=== PATIENT | female | born 1990 | race Caucasian/White ===

== ENCOUNTER 2022-05-21 12:20 | Outpatient (CLI) | payer OTHER ==
[2022-05-21 12:31] LABS: BASOPHILS % (AUTO) 0.4 %; EOSINOPHILS # (AUTO) 0.1 10^3/uL (0.0-0.7); HCT - HEMATOCRIT 35.5 % (37.0-47.0); HGB - HEMOGLOBIN 11.5 g/dL (12.0-16.0); LYMPHOCYTES # (AUTO) 2.2 10^3/uL (1.5-3.5); LYMPHOCYTES % (AUTO) 20.3 %; MEAN CORPUSCULAR HEMOGLOBIN 28.4 pg (27.0-31.0); MEAN CORPUSCULAR HGB CONC 32.4 g/dL (32.0-36.0); MEAN CORPUSCULAR VOLUME 87.7 fL (81.0-99.0); MEAN PLATELET VOLUME 10.3 fL (7.9-10.8); MONOCYTES # (AUTO) 0.9 10^3/uL (0.0-1.0); MONOCYTES % (AUTO) 8.2 %; NEUTROPHILS # (AUTO) 7.5 10^3/uL (1.5-6.6); NEUTROPHILS % (AUTO) 69.2 %; PLT - PLATELET COUNT 273 10^3/uL (130-450); RED BLOOD COUNT 4.05 10^6/uL (4.20-5.40); RED CELL DISTRIBUTION WIDTH 13.1 % (12.0-15.0); WHITE BLOOD COUNT 10.8 x10^3/uL (4.8-10.8)
[2022-05-21 12:44] LABS: ALBUMIN 2.8 g/dL (3.2-5.5); ALBUMIN/GLOBULIN RATIO 0.7 (1.0-2.2); ALKALINE PHOSPHATASE 137 IU/L (42-121); ALT ALANINE AMINOTRANSFERASE 12 IU/L (10-60); AST ASPARTATE AMINOTRANSFERASE 20 IU/L (10-42); BILIRUBIN,TOTAL < 0.2 mg/dL (0.2-1.0); BUN - BLOOD UREA NITROGEN 6 mg/dL (6-20); CALCIUM 9.7 mg/dL (8.5-10.3); CARBON DIOXIDE - CO2 20 mmol/L (21-32); CHLORIDE 106 mmol/L (101-111); CREATININE 0.5 mg/dL (0.4-1.0); GFR - MDRD 142 (>89); GLUCOSE 109 mg/dL (70-100); POTASSIUM 3.7 mmol/L (3.5-5.0); SODIUM 137 mmol/L (135-145); TOTAL PROTEIN 6.6 g/dL (6.7-8.2)
[2022-05-21 12:52] LABS: CREATININE,URINE 97.1 mg/dL; PROTEIN/CREATININE RATIO,URINE 0.2 (<=0.2)
== END 2022-05-21 12:21 | disposition home or self-care (01) ==
LOC: LAB 12:20
PROVIDERS: ATTEND Nurse Practitioner Obstetrics & Gynecology
DX: O13.3 Gestational [pregnancy-induced] hypertension without significant proteinuria, third trimester (principal)
CPT/HCPCS: 36415; 80053; 82570; 84156; 85025

== ENCOUNTER 2022-05-27 21:21 | Outpatient (CLI) | payer OTHER ==
[2022-05-27 21:44] VITALS: BP 148/93
[2022-05-27 22:21] LABS: BASOPHILS # (AUTO) 0.1 10^3/uL (0.0-0.1); BASOPHILS % (AUTO) 0.5 %; EOSINOPHILS # (AUTO) 0.1 10^3/uL (0.0-0.7); EOSINOPHILS % (AUTO) 1.1 %; HCT - HEMATOCRIT 33.4 % (37.0-47.0); HGB - HEMOGLOBIN 10.8 g/dL (12.0-16.0); LYMPHOCYTES # (AUTO) 2.7 10^3/uL (1.5-3.5); MEAN CORPUSCULAR HEMOGLOBIN 28.5 pg (27.0-31.0); MEAN CORPUSCULAR HGB CONC 32.3 g/dL (32.0-36.0); MEAN CORPUSCULAR VOLUME 88.1 fL (81.0-99.0); MEAN PLATELET VOLUME 10.9 fL (7.9-10.8); MONOCYTES # (AUTO) 1.1 10^3/uL (0.0-1.0); MONOCYTES % (AUTO) 10.6 %; NEUTROPHILS # (AUTO) 6.7 10^3/uL (1.5-6.6); NEUTROPHILS % (AUTO) 61.7 %; PLT - PLATELET COUNT 276 10^3/uL (130-450); RED BLOOD COUNT 3.79 10^6/uL (4.20-5.40); RED CELL DISTRIBUTION WIDTH 13.1 % (12.0-15.0); WHITE BLOOD COUNT 10.8 x10^3/uL (4.8-10.8)
[2022-05-27 22:37] LABS: ALBUMIN 2.8 g/dL (3.2-5.5); BILIRUBIN,TOTAL 0.3 mg/dL (0.2-1.0); CALCIUM 8.9 mg/dL (8.5-10.3); CREATININE 0.5 mg/dL (0.4-1.0); POTASSIUM 3.5 mmol/L (3.5-5.0)
[2022-05-27 22:38] LABS: PROTEIN/CREATININE RATIO,URINE 0.4 (<=0.2)
--- NOTE | 2022-05-27 22:39 | PROVIDER PROGRESS NOTE ---
- HPI Chief Complaint: Hypertension/PIH Current : Current EDU 06/21/22 Gestation 36 Weeks and 3 Days 2 Para 0 Vital Signs Temperature 36.9 C 05/27/22 21:42 Heart Rate 84 05/27/22 21:42 Respiratory Rate 18 05/27/22 21:42 Blood Pressure 148/93 H 05/27/22 21:42 Temperature 36.9 C 05/27/22 21:42 Heart Rate 84 05/27/22 21:42 Respiratory Rate 18 05/27/22 21:42 Blood Pressure 148/93 H 05/27/22 21:42 O2 Saturation If not protocol: Oxygen Flow, liters/minute - Procedures OB Procedure Performed: NST Diagnosis/Indication for NST: Gestational Hypertension NST Procedure: NST Procedure Start Date 05/27/22 Start Time 21:35 Stop Time 22:10 Vibroacoustic Stimulation Used No Patient States Movement Yes - Plan Plan: Etta presents today as directed by myself after she phones with concerns for elevated blood pressure with home BP cuff 159/111. She denies SAHU, visual disturbances, RUQ or epigastric pain. She denies vaginal bleeding, leakage of fluid or contractions. She reports +FM. NST performed 05/27/2022 NST read 05/27/2022 NST reactive. FHR baseline 140, moderate variability, + accels, no decels No contractions appreciated via tocometry BP 148/93, 141/94, 139/86, 149/94, 136/84 CBC WNL CMP-WNL Mtp/creatinine ratio - elevated to 0.4 (previously 0.2) Assessment: 32yo @ 36.3wks gestation Gestational hypertension (r/o preeclampsia) FHR Category I Plan: Pt given 100mg PO labetalol now and Rx sent to [facility] in [place] to continue tid. 24 hour urine protein ordered and instructions reviewed. IOL already scheduled for 37wks on 05/31/2022 @ 0730 with preinduction cervical ripening with misoprostol. NST with TALIA on Thursday - keep as scheduled. Continue 4 x daily BP monitoring at home - pt aware of parameters to call. Reviewed plan of care with regional office coordinator physician who is in agreement. Pt has emergency contact information. Pt released home with precautions. She verbalized understanding and agrees to above plan. She denies further questions or concerns at this time. FINAL DIAGNOSIS: Gestational hypertension
[2022-05-27 22:50] LABS: ALBUMIN/GLOBULIN RATIO 0.8 (1.0-2.2); TOTAL PROTEIN 6.5 g/dL (6.7-8.2)
[2022-05-27] MEDS ORDERED: LABETALOL 100 MG TABLET PO SCH (23:00)
== END 2022-05-27 23:04 | disposition home or self-care (01) ==
LOC: WFO 21:21 → FBP 21:25 → WFO 23:04
PROVIDERS: ATTEND Nurse Practitioner Obstetrics & Gynecology
DX: O13.3 Gestational [pregnancy-induced] hypertension without significant proteinuria, third trimester (principal); Z3A.36 36 weeks gestation of pregnancy
CPT/HCPCS: 36415; 59025; 80053; 82570; 84156; 85025; 99215; A9270

== ENCOUNTER 2022-05-29 12:26 | Outpatient (CLI) | payer OTHER ==
[2022-05-29 13:21] LABS: TOTAL PROTEIN,URINE TIMED 10 mg/dL
[2022-05-29 13:31] LABS: TOTAL PROTEIN 24HR,URINE 225 mg/24hr (40-150); TOTAL VOLUME 24HRS,URINE 2250 mL
== END 2022-05-29 12:27 | disposition home or self-care (01) ==
LOC: LAB.R 12:26
PROVIDERS: ATTEND Nurse Practitioner Obstetrics & Gynecology
DX: O13.3 Gestational [pregnancy-induced] hypertension without significant proteinuria, third trimester (principal); Z3A.36 36 weeks gestation of pregnancy
CPT/HCPCS: 84156

== ENCOUNTER 2022-05-31 07:43 | Inpatient (IN) | payer OTHER ==
[2022-05-31] MEDS ORDERED: CARBOPROST TROMETHAMINE 250 MCG/ML AMP IM PRN (09:04)
[2022-05-31] MEDS ORDERED: TRANEXAMIC ACID IN NACL 1,000 MG/100 ML BAG IV PRN (09:04)
[2022-05-31] MEDS ORDERED: lidocaine 1% 20 ML MDV ID PRN (09:04)
[2022-05-31] MEDS ORDERED: OXYTOCIN/SODIUM CHLORIDE 500 ML IV PRN (09:04)
[2022-05-31] MEDS ORDERED: METHYLERGONOVINE 0.2 MG/ML VIAL IM PRN (09:04)
[2022-05-31] MEDS ORDERED: OXYTOCIN 10 UNIT/ML VIAL IM PRN (09:04)
[2022-05-31] MEDS ORDERED: miSOPROStoL 200 MCG TABLET BC PRN (09:04)
[2022-05-31] MEDS ORDERED: ONDANSETRON 4 MG/2 ML VIAL IVP PRN (09:04)
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
[2022-05-31 09:14] LABS: BASOPHILS % (AUTO) 0.3 %; EOSINOPHILS # (AUTO) 0.1 10^3/uL (0.0-0.7); HCT - HEMATOCRIT 34.1 % (37.0-47.0); HGB - HEMOGLOBIN 11.1 g/dL (12.0-16.0); LYMPHOCYTES # (AUTO) 2.6 10^3/uL (1.5-3.5); LYMPHOCYTES % (AUTO) 20.3 %; MEAN CORPUSCULAR HEMOGLOBIN 28.2 pg (27.0-31.0); MEAN CORPUSCULAR HGB CONC 32.6 g/dL (32.0-36.0); MEAN CORPUSCULAR VOLUME 86.5 fL (81.0-99.0); MEAN PLATELET VOLUME 11.3 fL (7.9-10.8); MONOCYTES # (AUTO) 1.1 10^3/uL (0.0-1.0); MONOCYTES % (AUTO) 8.2 %; NEUTROPHILS # (AUTO) 8.9 10^3/uL (1.5-6.6); NEUTROPHILS % (AUTO) 69.5 %; PLT - PLATELET COUNT 299 10^3/uL (130-450); RED BLOOD COUNT 3.94 10^6/uL (4.20-5.40); RED CELL DISTRIBUTION WIDTH 13.2 % (12.0-15.0); WHITE BLOOD COUNT 12.8 x10^3/uL (4.8-10.8)
[2022-05-31] MEDS: LABETALOL 100 MG TABLET PO SCH ×3 (09:45→22:07)
[2022-05-31] MEDS ORDERED: LACTATED RINGERS 1,000 ML IV SCH (10:00)
[2022-05-31 10:17] LABS: ALBUMIN 2.7 g/dL (3.2-5.5); ALBUMIN/GLOBULIN RATIO 0.8 (1.0-2.2); BILIRUBIN,TOTAL 0.4 mg/dL (0.2-1.0); CALCIUM 9.5 mg/dL (8.5-10.3); CREATININE 0.6 mg/dL (0.4-1.0); TOTAL PROTEIN 6.3 g/dL (6.7-8.2)
[2022-05-31] MEDS: miSOPROStoL 100 MCG TABLET BC SCH ×3 (10:27→20:49)
[2022-05-31] MEDS ORDERED: SODIUM CHLORIDE FLUSH 0.9% 10 ML SYRINGE IVP SCH (17:00)
--- NOTE | 2022-05-31 18:58 | PROVIDER PROGRESS NOTE ---
Labor Progress Note - Uterine Monitoring Uterine Monitoring Mode: positive: External toco Contraction Frequency (min/apart): 1-3 Contraction Intensity: positive: Mild Uterine Resting Tone: positive: Soft - Monitoring Monitor Mode: positive: External ultrasound Heart Rate Baseline: 150 Heart Rate Variability: positive: Moderate (6-25 bmp) Accelerations: positive: Present, 15x15 Decelerations: positive: None Strip Review: positive: Category I - Vaginal Exam Dilation (in cm): 3 Effacement (%): 75 Station: -3 Cervical Position: Posterior - Labor Progress Note Labor Progress Note/Additional Text: S: Talking through contractions but states she is definitely feeling them more than she was prior to the dosage of misoprostol. She just lost her mucus plug. Denies vaginal bleeding or leakage of fluid. She denies SAHU, visual disturbances, RUQ or epigastric pain. Her is supportive at the bedside. Mood is good. O: FHR baseline 150, moderate variability, + accels, no decels Contractions palpate mild every 1-3 minutes with soft resting tone S/p 1 dose of 25mcg BC misoprostol SVE 3/75/-3, posterior, soft. Vertex with intact membranes. BPs 140s/90s A: 32yo @ 37.0wks gestation Gestational hypertension GBS neg FHR Category I P: D/c misoprostol with expectant management secondary to change in SVE and adequately ripened cervix. Continuous monitoring. Repeat PIH labs at 0900. Nitrous oxide PRN. Jacuzzi PRN. Epidural per maternal request. Anticipate .
[2022-06-01] MEDS: miSOPROStoL 100 MCG TABLET BC SCH (02:43)
[2022-06-01] MEDS: LABETALOL 100 MG TABLET PO SCH ×2 (06:01→13:57)
--- NOTE | 2022-06-01 11:56 | PROVIDER PROGRESS NOTE ---
Labor Progress Note - Uterine Monitoring Uterine Monitoring Mode: positive: External toco Contraction Frequency (min/apart): irregular, 7-10 min Contraction Intensity: positive: Mild Uterine Resting Tone: positive: Soft - Monitoring Monitor Mode: positive: External ultrasound Heart Rate Baseline: 145 Heart Rate Variability: positive: Moderate (6-25 bmp) Accelerations: positive: Present, 15x15 Decelerations: positive: None Strip Review: positive: Category I - Vaginal Exam Dilation (in cm): 3 Effacement (%): 70 Station: -3 Cervical Position: Posterior - Labor Progress Note Labor Progress Note/Additional Text: S: Pt feeling very discouraged about her lack of progress throughout the night. She was able to get some sleep however she feels like that has hindered the labor process as her contractions have decreased in both frequency and intensity throughout the night. She denies SAHU, visual disturbances, RUQ or epigastric pain. She is tearful when discussing my recommendation to initiate pitocin for continued induction of labor however states she understands that is what needs to happen next secondary to her unchanged cervical exam. Her is supportive at the bedside. O: FHR baseline 145, moderate variability, + accels, no decels Contractions palpate mild irregularly every 7-10 minutes with soft resting tone SVE 3/70/-3, posterior. Vertex. BPs remain mildly elevated PIH labs repeat this morning - pending A: 32yo @ 37.1wks gestation Gestational hypertension GBS neg FHR Category I P: Initiate pitocin for induction of labor to start at 2mU/mL and increased by 2mU every 30 minutes per protocol. Continuous monitoring. Jacuzzi PRN. Nitrous oxide PRN. Epidural per maternal request. Anticipate .
[2022-06-01 12:00] LABS: HGB - HEMOGLOBIN 11.2 g/dL (12.0-16.0); MEAN CORPUSCULAR VOLUME 87.5 fL (81.0-99.0); MEAN PLATELET VOLUME 10.4 fL (7.9-10.8); RED CELL DISTRIBUTION WIDTH 13.4 % (12.0-15.0); WHITE BLOOD COUNT 12.2 x10^3/uL (4.8-10.8)
[2022-06-01] MEDS: OXYTOCIN/SODIUM CHLORIDE 500 ML IV SCH (12:10)
[2022-06-01 12:17] LABS: ALBUMIN 2.9 g/dL (3.2-5.5); ALBUMIN/GLOBULIN RATIO 0.7 (1.0-2.2); BILIRUBIN,TOTAL 0.3 mg/dL (0.2-1.0); CALCIUM 9.7 mg/dL (8.5-10.3); CREATININE 0.5 mg/dL (0.4-1.0); POTASSIUM 4.2 mmol/L (3.5-5.0); TOTAL PROTEIN 6.8 g/dL (6.7-8.2)
--- NOTE | 2022-06-01 20:58 | PROVIDER PROGRESS NOTE ---
Labor Progress Note - Uterine Monitoring Uterine Monitoring Mode: positive: External toco Contraction Frequency (min/apart): 3-6 Contraction Intensity: positive: Mild to moderate Uterine Resting Tone: positive: Soft - Monitoring Monitor Mode: positive: External ultrasound Heart Rate Baseline: 135 Heart Rate Variability: positive: Moderate (6-25 bmp) Accelerations: positive: Present, 15x15 Decelerations: positive: None Strip Review: positive: Category I - Vaginal Exam Dilation (in cm): 3-4 Effacement (%): 70 Station: -2 Cervical Position: Posterior - Labor Progress Note Labor Progress Note/Additional Text: S: Feeling increased intensity of contractions and increased pressure in her bottom. She is coping well. She denies SAHU, visual disturbances, RUQ or epigastric pain. Her mood is improved from previously and she her remains supportive at the bedside. O: FHR baseline 135, moderate variability, + accels, no decels Contractions palpate mild every 3-6 minutes with soft resting tone SVE 3-4/70/-2, posterior, medium. Vertex. Intact membranes. Pitocin currenlty @ 13mU/mL A: 32yo @ 37.1wks gestation by LMP c/w first trimester ultrasound Gestational hypertension GBS neg FHR Category I P: Continue pitocin induction of labor with titration per protocol. Continuous monitoring. Jacuzzi PRN. Nitrous oxide PRN. Epidural per maternal request. Anticipate .
[2022-06-01] MEDS ORDERED: hydrALAZINE INJ 20 MG/ML VIAL IVP PRN ×2 (22:01)
[2022-06-01] MEDS ORDERED: NIFEdipine 10 MG CAPSULE PO PRN (22:01)
[2022-06-01] MEDS ORDERED: LABETALOL 20 MG/4 ML SYRINGE IVP PRN ×3 (22:01)
[2022-06-02] MEDS: LABETALOL 100 MG TABLET PO SCH ×3 (02:36→16:17)
--- NOTE | 2022-06-02 06:10 | PROVIDER PROGRESS NOTE ---
Labor Progress Note - Uterine Monitoring Uterine Monitoring Mode: positive: External toco Contraction Frequency (min/apart): 2-4 Contraction Intensity: positive: Moderate Uterine Resting Tone: positive: Soft - Monitoring Monitor Mode: positive: External ultrasound Heart Rate Baseline: 140 Heart Rate Variability: positive: Moderate (6-25 bmp) Accelerations: positive: Present, 15x15 Decelerations: positive: None Strip Review: positive: Category I - Vaginal Exam Dilation (in cm): 4 Effacement (%): 80 Station: -2 Cervical Position: Midposition - Labor Progress Note Labor Progress Note/Additional Text: S: Breathing through contractions and coping well with the use of nitrous oxide. Continues to deny headache, visual disturbances, RUQ or epigastric pain. She was able to get some sleep throughout the night last night and feels well overall. Her remains supportive at the bedside. O: FHR baseline 140, moderate variability, + accels, no decels Contractions palpate moderate every 2-4 minutes with soft resting tone. SVE 4/80/-2, midposition, soft. Vertex with intact membranes. Pitocin currently @ 16mU/mL A: 32yo @ 37.2wks gestation by LMP c/w first trimester ultrasound Gestational hypertension (PIH labs neg) FHR Category I GBS neg P: Continue pitocin for labor augmentation with titration per protocol. Continuous monitoring. Jacuzzi PRN. Nitrous oxide PRN. Epidural per maternal request. Consider AROM with next SVE. Anticipate .
[2022-06-02] MEDS ORDERED: fentaNYL 100 MCG/2 ML VIAL IVP PRN (14:45)
--- NOTE | 2022-06-02 14:51 | PROVIDER PROGRESS NOTE ---
Labor Progress Note - Uterine Monitoring Uterine Monitoring Mode: positive: External toco Contraction Frequency (min/apart): 4-8 Contraction Intensity: positive: Moderate Uterine Resting Tone: positive: Soft - Monitoring Monitor Mode: positive: External ultrasound Heart Rate Baseline: 140 Heart Rate Variability: positive: Moderate (6-25 bmp) Accelerations: positive: Present, 15x15 Decelerations: positive: None Strip Review: positive: Category I - Vaginal Exam Dilation (in cm): 4-5 Effacement (%): 90 Station: -2 Cervical Position: Midposition - Labor Progress Note Labor Progress Note/Additional Text: S: Coping well with contractions. Denies SAHU, visual disturbances, RUQ or epiga stric pain. Her is supportive at the bedside. O: FHR baseline 140, moderate variability, + accels, no decels Contractions palpate moderate every 3-6 minutes with soft resting tone SVE 4-5/90/-2, midposition. Vertex. AROM small amount of clear fluid Pitocin currently @ 18mU/mL A: 32yo @ 37.2wks gestation Gestational hypertension GBS negative FHR Category I P: Continue pitocin for labor induction with titration per protocol. Continuous monitoring. Jacuzzi PRN. Nitrous oxide PRN. Epidural per maternal request. Anticipate .
[2022-06-02] MEDS: SODIUM CHLORIDE FLUSH 0.9% 10 ML SYRINGE IVP PRN (15:06)
[2022-06-02] MEDS ORDERED: ROPIVACAINE 0.2% 200 MG/100 ML BAG EP ONE (16:25)
[2022-06-02] MEDS ORDERED: ROPIVACAINE 0.2% 200 MG/100 ML BAG EP PRN (17:16)
[2022-06-02] MEDS ORDERED: ePHEDrine 50 MG/ML VIAL IVP PRN (17:16)
[2022-06-02] MEDS ORDERED: NALOXONE 0.4 MG/ML VIAL IVP PRN (17:16)
[2022-06-02] MEDS ORDERED: diphenhydrAMINE INJ 50 MG/ML VIAL IVP PRN (17:16)
[2022-06-02] MEDS ORDERED: METOCLOPRAMIDE 10 MG/2 ML VIAL IVP PRN (17:16)
[2022-06-02] MEDS ORDERED: NALBUPHINE 10 MG/ML AMP IVP PRN (17:16)
[2022-06-02] MEDS ORDERED: ONDANSETRON 4 MG/2 ML VIAL IVP PRN (17:16)
--- NOTE | 2022-06-02 17:19 | ANESTHESIA ---
Pre-Anesthesia VS, & Labs - Diagnosis labor epidural - Procedure epidural Vital Signs: Temp Pulse Resp BP Pulse Ox O2 Flow Rate 36.8 C 82 18 132/78 H 99 06/02/22 15:15 06/02/22 15:15 06/02/22 15:15 06/02/22 15:15 06/01/22 21:09 Height: 5 ft 4 in Weight (kg): 79.379 kg Body Mass Index: 30.0 BMI Classification: Obese - NPO Other (clears) - Is Patient ?: Yes - Lab Results Current Lab Results: Laboratory Tests 06/01/22 11:55: Sodium 137, Potassium 4.2, Chloride 105, Carbon Dioxide 22, Anion Gap 10.0, BUN 8, Creatinine 0.5, Estimated GFR (MDRD) 142, Glucose 83, Calcium 9.7, Total Bilirubin 0.3, AST 20, ALT 12, Alkaline Phosphatase 135 H, Total Protein 6.8, Albumin 2.9 L, Globulin 3.9, Albumin/Globulin Ratio 0.7 L 06/01/22 11:55: WBC 12.2 H, RBC 4.00 L, Hgb 11.2 L, Hct 35.0 L, MCV 87.5, MCH 28.0, MCHC 32.0, RDW 13.4, Plt Count 295, MPV 10.4 05/31/22 09:23: Blood Type Recheck O POSITIVE 05/31/22 09:23: Sodium 137, Potassium 4.0, Chloride 107, Carbon Dioxide 22, An ion Gap 8.0, BUN 7, Creatinine 0.6, Estimated GFR (MDRD) 115, Glucose 88, Calcium 9.5, Total Bilirubin 0.4, AST 20, ALT 11, Alkaline Phosphatase 134 H, Total Protein 6.3 L, Albumin 2.7 L, Globulin 3.6, Albumin/Globulin Ratio 0.8 L 05/31/22 08:19: WBC 12.8 H, RBC 3.94 L, Hgb 11.1 L, Hct 34.1 L, MCV 86.5, MCH 28.2, MCHC 32.6, RDW 13.2, Plt Count 299, MPV 11.3 H, Neut # (Auto) 8.9 H, Lymph # (Auto) 2.6, [place] # (Auto) 1.1 H, Eos # (Auto) 0.1, Baso # (Auto) 0.0, Absolute Nucleated RBC 0.00, Nucleated RBC % 0.0 05/31/22 08:19: Blood Type O POSITIVE, Antibody Screen NEGATIVE Fish Bones: 06/01/22 11:55 06/01/22 11:55 Home Medications and Allergies Active Medications Carboprost Tromethamine (Carboprost Tromethamine 250 Mcg/Ml Amp) 250 mcg IM Q15M PRN PRN Reason: Step 4: Hemorrhage protocol Stop: 06/05/22 09:06 Fentanyl (Fentanyl 100 Mcg/2 Ml Vial) 50 mcg IVP Q2HR PRN PRN Reason: PAIN Last Admin: 06/02/22 15:06 Dose: 50 mcg Hydralazine HCl (Hydralazine Inj 20 Mg/Ml Vial) 10 mg IVP .ONCE PRN PRN Reason: SBP> or= 160 OR DBP> or= 110 Hydralazine HCl (Hydralazine Inj 20 Mg/Ml Vial) 5 - 10 mg IVP Q20M PRN; Protocol PRN Reason: SBP> or= 160 OR DBP> or= 110 Oxytocin/Sodium Chloride (Pitocin/Sodium Chloride) 500 mls @ 999 mls/hr IV PRN PRN; Protocol PRN Reason: POST- HEMORR PREVENTION Stop: 06/05/22 09:06 Tranexamic Acid (Tranexamic 1,000 Mg/100ml-Nacl) 1,000 mg in 100 mls @ 600 mls/hr IV .ONCE PRN PRN Reason: EBL >1200mL and within 3hr Stop: 06/05/22 09:06 Lactated Ringer's (Lr) 1,000 mls @ 100 mls/hr IV .Q10H [facility] Last Infusion: 05/31/22 14:31 Dose: Infused Oxytocin/Sodium Chloride (Pitocin/Sodium Chloride) 500 mls @ 2 mls/hr IV TITR DEMETRIUS; Protocol Last Titration: 06/02/22 02:30 Dose: 16 milliunit/min, 16 mls/hr Labetalol HCl (Labetalol 100 Mg Tablet) 100 mg PO TID DEMETRIUS Last Admin: 06/02/22 16:17 Dose: Not Given Labetalol HCl (Labetalol 20 Mg/4 Ml Syringe) 20 mg IVP .ONCE PRN PRN Reason: SBP> or= 160 OR DBP> or= 110 Labetalol HCl (Labetalol 20 Mg/4 Ml Syringe) 20 - 80 mg IVP Q10M PRN; Protocol PRN Reason: SBP> or= 160 OR DBP> or= 110 Labetalol HCl (Labetalol 20 Mg/4 Ml Syringe) 20 - 40 mg IVP Q10M PRN; Protocol PRN Reason: SBP> or= 160 OR DBP> or= 110 Lidocaine HCl (Lidocaine 1% 20 Ml Mdv) 20 ml ID .ONCE PRN PRN Reason: PERINEAL REPAIR Stop: 06/05/22 09:06 Methylergonovine Maleate (Methylergonovine 0.2 Mg/Ml Vial) 0.2 mg IM .ONCE PRN PRN Reason: Step 2: Hemorrhage protocol Stop: 06/05/22 09:06 Misoprostol (Misoprostol 200 Mcg Tablet) 800 mcg BC .ONCE PRN PRN Reason: Step 3: Hemorrhage protocol Stop: 06/05/22 09:06 Misoprostol (Misoprostol 100 Mcg Tablet) 25 mcg BC Q4H [facility] Last Admin: 06/01/22 02:43 Dose: Not Given Nifedipine (Nifedipine 10 Mg Capsule) 10 - 20 mg PO Q20M PRN; Protocol PRN Reason: SBP> or= 160 OR DBP> or= 110 Ondansetron HCl (Ondansetron 4 Mg/2 Ml Vial) 4 mg IVP Q4HR PRN PRN Reason: Nausea / Vomiting Oxytocin (Oxytocin 10 Unit/Ml Vial) 10 unit IM .ONCE PRN PRN Reason: Step one: If no IV access Stop: 06/05/22 09:06 Sodium Chloride (Sodium Chloride Flush 0.9% 10 Ml Syringe) 10 ml IVP 0100,0900,1700 [facility] Last Admin: 06/02/22 15:06 Dose: 10 ml Sodium Chloride (Sodium Chloride Flush 0.9% 10 Ml Syringe) 10 ml IVP PRN PRN PRN Reason: NEEDED PER PROVIDER ORDERS Last Admin: 06/02/22 15:06 Dose: 10 ml Allergies/Adverse Reactions: Allergies Allergy/AdvReac Type Severity Reaction Status Date / Time No Known Drug Allergies Allergy Verified 05/27/22 22:49 Anes History & Medical History - Anesthetic History Anesthesia Complications: reports: No previous complications - Medical History Cardiovascular: reports: None Pulmonary: reports: None Gastrointestinal: reports: None Smoking Status: Never smoker History of Cancer?: No - Obstetrical History : 2 Parity: 0 Events: reports: None Complications: reports: Other Exam General: Alert, Oriented x3 Dental: WNL Mouth Opening: Greater than 4 Fingerbreadths Neck Mobility: Normal Mallampati classification: II Respiratory: Lungs clear Cardiovascular: Regular rate Plan Anesthesia Type: Epidural Consent for Procedure(s) Verified and Reviewed: Yes Code Status: Attempt Resuscitation ASA classification: 2-Mild systemic disease Is this case an emergency?: No
[2022-06-02] MEDS: OXYTOCIN/SODIUM CHLORIDE 500 ML IV SCH (21:32)
[2022-06-03] MEDS ORDERED: HYDROCORTISONE 1% CREAM 28 GM TUBE PR PRN (01:59)
[2022-06-03] MEDS ORDERED: HYDROcod/ACETAM 5/325 MG TABLET PO PRN (01:59)
[2022-06-03] MEDS ORDERED: WITCH HAZEL/GLYCERIN 1 PAD TOP PRN (01:59)
--- NOTE | 2022-06-03 02:06 | DELIVERY NOTE ---
Delivery Note - Labor Labor: positive: Augmented by ARM, Induced by oxytocin - Delivery Method Infant Delivery Method: positive: Spontaneous vaginal delivery - Cervical Ripening Method Cervical Ripening Method: positive: Misoprostil - Presentation Presentation: positive: Vertex, NISH - left occiput anterior - Nuchal Cord Nuchal Cord: positive: None - Amniotic Fluid Description Amniotic Fluid Description: positive: Clear - Episiotomy Type Episiotomy Type: positive: None - Laceration Laceration: positive: None - Delivery Outcome Delivery Outcome: positive: Livebirth - [place]: positive: Bulb syringe, Stimulated, Warmed, [place] used, Warmer used sex: positive: Male - Cord Cord: positive: 3 vessels - Placenta Placenta: positive: Intact, Spontaneous - Estimated Blood Loss Estimated Blood Loss (in cc): 100 - Post Delivery Events Post Delivery Events: positive: No post delivery events - Delivery Comments (Free Text/Narrative) Delivery Comments (Free Text/Narrative): Labor: This 32yo @ 37.3wks gestation by LMP c/w first trimester ultrasound presented on 05/31/2022 for medical induction of labor secondary to gestational hypertension. She presented s/p 12 hours of gonzalez cervical ripening placement and balloon was removed. SVE 1/50/-3, posterior and vertex with intact membranes. She was given 25mcg BC misoprostol for pre-induction cervical ripening and SVE progressed to 3/80/-3. Pitocin was initiated for induction of labor for a maximum infusion rate of 24mU/mL. AROM occurred at 1430 on 01/2022 and was noted to be a small amount of clear fluid. Epidural was placed per maternal request. FHR pattern demonstrated Category I pattern throughout labor. Secondary to her prolonged labor and prolonged use of pitocin for labor induction, the patient was typed and crossed for 2 units of blood. Pt progressed to c/c/0 with onset of pushing @ 2149. : Normal SVB of viable male on 06/03/2022 @ 0141. No nuchal cord. The was placed on maternal abdomen, stimulated, dried, and moved to warmer following CNM clamp and FOB cut umbilical cord. 's were 8/9 at 1 and 5 minutes respectively and was placed skin to skin with patient. Pitocin administered via IV for hemostasis and secondary to concern for increased risk for hemorrhage, 800mcg MI misoprostol administered in addition to TXA for hemorrhage prophylaxis. 3VC. Cord blood was obtained. Fundal massage and gentle cord traction applied for active management of the third stage. Placenta delivered spontaneously and intact @ 0146. EBL 100mL. Fourth stage: Uterine fundus firm and there is no excessive bleeding. The perineum, vagina, and cervix were inspected and noted to be intact. Skin to skin contact initiated. Family bonding well. Both mother and baby were left in stable condition.
[2022-06-03] MEDS: IBUPROFEN 800 MG TABLET PO SCH ×4 (03:19→22:01)
[2022-06-03] MEDS: ACETAMINOPHEN 500 MG TABLET PO SCH ×3 (03:19→19:55)
[2022-06-03] MEDS: LABETALOL 100 MG TABLET PO SCH ×3 (03:19→17:59)
[2022-06-03] MEDS: SODIUM CHLORIDE FLUSH 0.9% 10 ML SYRINGE IVP PRN (04:37)
[2022-06-03] MEDS: DOCUSATE SODIUM 100 MG CAPSULE PO SCH ×2 (10:01→22:02)
[2022-06-04] MEDS: LABETALOL 100 MG TABLET PO SCH ×2 (02:05→10:00)
[2022-06-04] MEDS: ACETAMINOPHEN 500 MG TABLET PO SCH (04:31)
[2022-06-04] MEDS: DOCUSATE SODIUM 100 MG CAPSULE PO SCH (10:00)
--- NOTE | 2022-06-04 10:34 | Discharge Plan ---
Discharge Plan Problem Reviewed?: Yes Disposition: Home, Self Care Condition: Good Diet: Regular Activity Restrictions: No Restrictions Shower Restrictions: No Driving Restrictions: No Weight Bearing: Full Weight Instruction Topics: Vaginal After No Smoking: If you smoke, Please STOP! Call for help. Follow-up with: Penny Link CNM, ARNP [Provider Admit Priv/Credential] -
--- NOTE | 2022-06-04 10:44 | DISCHARGE SUMMARY ---
Discharge Summary Condition at Discharge: Good Discharge Disposition: 01 Home, Self Care - HOSPITAL COURSE Hospital Course: Date of Admission: 05/31/2022 Date of Discharge: 06/04/2022 Diagnosis on Admission: 1. 32yo @ 37.0wks gestation by LMP c/w 8.3wk U/S 2. Gestational hypertension 3. GBS neg 4. FHR Category I Diagnosis on Discharge: 1. 32yo PPD#1 s/p TSVD viable male 2. Gestational hypertension 3. 4. Normal recovery Brief History: She is a patient of [facility] who presented on 05/31/2022 for medical induction of labor indicated for gestational hypertension. She had a gonzalez cervical ripening balloon placed approximately 12 hours prior to her arrival and it was then removed. She received 1 dose of 25mcg BC misoprostol for pre-induction cervical ripening followed by initiation of pitocin for induction of labor. AROM occurred for labor augmentation. Epidural was placed per maternal request. She progressed to spontaneously deliver a viable male infant on 06/03/2022 @ 0141. Apgars were 8/9 at 1 and 5 minutes resp ectively. She was given TXA and 800mcg NE misoprostol in addition to pitocin for active management of the third stage secondary to her elevated risk for hemorrhage following prolonged induction, prolonged use of oxytocin and maximum infusion rate of 24mU/mL, and a 4 hour second stage of labor. EBL 100mL. Her perineum was inspected and intact. She has been doing well in her course. She is ambulating and tolerating a regular diet. She is urinating without difficulty and her lochia is normal. Her pain is well controlled with oral medications. She is bonding well with her baby and she is without difficulty. She intends to follow up with myself at [facility] in [place] in 1 week for routine visit and blood pressure check. She has been given instructions to continue taking her vitamin while and to continue taking ibuprofen and tylenol over the counter as needed for pain management. She will also continue taking 100mg labetol PO once daily and continue taking her blood pressures 2-3 times daily. She was given parameters for when to call and we reviewed s/sx and risk of preeclampsia in depth today. She has been given precautions to call if she has any worsening fevers, chills, abdominal pain, increased vaginal bleeding or foul smelling vaginal lochia. She has also been given precautions to call if she experiences headache, visual disturbances, RUQ or epigastric pain or new onset edema. Pt verbalized understanding and agrees to above plan. She denies further questions or concerns at this time. Physical exam: Normocephalic, atraumatic. Heart RRR w/o M/G/R, lungs CTAB, abdomen soft and nontender with fundus firm at U-1, perineum intact, light lochia rubra, bilateral LE's trace edema. Mood is good. - ALLERGIES Allergies/Adverse Reactions: Allergies Allergy/AdvReac Type Severity Reaction Status Date / Time No Known Drug Allergies Allergy Verified 05/27/22 22:49 - LABS Result Diagrams: 06/01/22 11:55 06/01/22 11:55
[2022-06-04 12:33] VITALS: BP 144/97
--- NOTE | 2022-06-04 12:59 | Labor Flowsheet ---
Labor Flowsheet Datetime Report Generated by CPN: 06/04/2022 12:59 Datetime: 06/04/2022 10:21 VITAL SIGNS NBP Sys/Gisell/Mean (mmHg): 146 : 97 : 106 Pulse: 80 Datetime: 06/03/2022 05:50 Respirations: 16 SpO2 (%): 100 Temperature (C): 36.8 Temperature Route: Oral Datetime: 06/03/2022 03:42 Stage of : Datetime: 06/03/2022 02:10 Membranes Ruptured Date/Time: 06/02/2022 14:30 Amniotic Fluid Amount: Small Amniotic Fluid Odor: None Datetime: 06/03/2022 01:42 MEDICATIONS Pitocin (milliunits): Increased to @ 999 Medication Comments: txa @600 Datetime: 06/03/2022 01:40 UTERINE ACTIVITY Monitor Mode: External Frequency (min): 1-1.5 Quality: Mild Duration (sec): 50-70 Pattern: Normal: <= 5 Contractions in 10 Minutes Resting Tone (Palpate): Relaxed ASSESSMENT A Monitor Mode: External US FHR Baseline Rate : 140 Variability: Minimal - Undetectable to <=5 bpm Accelerations: None Decelerations: Late Category: Category II STAGE 2 Pushing: Coached on Pushing; Urge to Push Pushing Position: Pushing with Contractions; Pushing Lithotomy Pushing Progress: Descent with Pushing; Pushing Effectively with Contractions Datetime: 06/03/2022 01:38 Stage 2 Comments: head expelled Datetime: 06/03/2022 01:09 LaborFlag: Labor Datetime: 06/03/2022 00:25 I/O Interventions: Straight Cath (ml) @ 50 Patient Care Comments: Straight cath performed by Penny CHANDLERM Datetime: 06/02/2022 23:01 Anesthesia Comments: replaced bag with new bag Datetime: 06/02/2022 21:45 VAGINAL EXAM Dilatation (cm): 10.0 Effacement (%): 100 Station: 0 Exam by: Penny Fariba CNM COMMUNICATION CENTER COORDINATOR Datetime: 06/02/2022 21:40 Communication Comments: Penny Fariba CNM COMMUNICATION CENTER COORDINATOR at the bedside Datetime: 06/02/2022 21:30 Comments: pseudosinusoidal pattern noted Datetime: 06/02/2022 21:09 Monitor Interventions for UA: [place] Adjusted Datetime: 06/02/2022 21:04 COMMUNICATION Communication: Provider at Bedside Datetime: 06/02/2022 21:00 Contraction Comments: inverted Datetime: 06/02/2022 19:54 Patient Position/Activity: Right Lateral Datetime: 06/02/2022 19:41 Monitor Interventions for FHR: Ultrasound Adjusted Datetime: 06/02/2022 19:15 FHR Baseline Changes: No Baseline Change Datetime: 06/02/2022 16:44 Epidural Procedure: Completed Datetime: 06/02/2022 16:30 ANESTHESIA Anesthesia Plans: Epidural Epidural Positioning: Sitting Datetime: 06/02/2022 16:00 Oxygen Method: Room Air Datetime: 06/02/2022 15:59 Vaginal Bleeding: Normal Show Cervix, Position: Anterior Datetime: 06/02/2022 15:30 Pitocin Checklist: At Least 1 Acceleration of 15 bpm x 15 Seconds in 30 Minutes or Adequate Variabi lity; No More than 1 Late Deceleration Occurred in Past 30 Minutes; No More than 5 Uterine Contractio ns in 10 Minutes for any 20 Minute Interval; Uterus Palpates Soft between Contractions Datetime: 06/02/2022 15:15 PAIN Pain Scale: 8 Pain Presence: Intermittent Pain Type: Contraction Pain Location: Perineum; Sacrum Pain Relief Measures: Pain Medication Given Pain Coping: Breathing Through Contractions Pain Assessment Comments: 8-9 Comfort Measures: Breathing/Relaxation Datetime: 06/02/2022 15:12 Analgesics/Sedatives: Fentanyl (mcg) @ 50 Datetime: 06/02/2022 14:30 Membrane Status: Ruptured Membranes Rupture Method: Artificial Amniotic Fluid Color: Clear Vaginal Exam Comments: 4-5 Datetime: 06/02/2022 07:19 MATERNAL ASSESSMENT Level of Consciousness: Alert Headache: Denies Breath Sounds, Left: Clear and Equal Breath Sounds, Right: Clear and Equal Nausea/Vomiting: Denies RUQ Epigastric Pain: Denies Datetime: 06/02/2022 04:45 Vital Sign Comments: blood pressure taken during contraction, will retake when contraction is over Datetime: 06/01/2022 17:00 Nurse Giving Report: Omar Cristina RN Nurse Receiving Report: DAR Young Notable Communications: patient will let you know when it's ok to take her blood pressure. She doesn't want the pitocin to go up any higher now. Datetime: 06/01/2022 12:09 Cervix, Consistency: Moderate Provider Reviewed Strip: Yes Medications: Pitocin Teaching Comments: patient is upset re:the start of pitocin for her induction Datetime: 06/01/2022 08:00 WALL'S SCORE Dilatation (cm): 3-4 cms Effacement: >80_ effaced Station: minus 3 Consistency: Medium Position: Posterior Total Wall's Score: 6 : 5-8 = Small percentage of induction failure PRE-INDUCTION CHECKLIST Orders on Chart: Yes H Record Available: Yes Indication Charted: Yes Gestational Age Documented: Yes Consent Signed and on Chart: Yes Provider with C/S Priv Aware: Yes Status of Cervix Documented: Yes Presentation Documented: Yes 30min of Monitoring Prior: Yes 2 Accels of 15X15 Present: Yes No Late Decels Present: Yes Less than 2 Variable Decels: Yes Pt Meets Criteria for Induction: Yes TEACHING Plan of Care: Plan of Care Discussed; Induction; Gestational Hypertension/Preeclampsia/Eclampsia Datetime: 05/31/2022 23:50 Provider Notified (Name): Penny Fariba, CRN, COMMUNICATION CENTER COORDINATOR Datetime: 05/31/2022 18:39 Strip Reviewed by: Penny Fariba, CNM Datetime: 05/31/2022 17:13 Notification Reason: Uterine Activity Datetime: 05/31/2022 14:01 PATIENT CARE IV/Blood Work: IV Bolus Started; IV Bolus Given ml @ 500 Datetime: 05/31/2022 10:27 Cervical Ripening Agents: Mane Balloon; Cytotec @
== END 2022-06-04 12:20 | disposition home or self-care (01) | DRG 807 ==
LOC: WFO 07:43 → FBP 07:45 → WFO 09:03 → FBP 09:04
PROVIDERS: ADMIT Nurse Practitioner Obstetrics & Gynecology; ATTEND Nurse Practitioner Obstetrics & Gynecology
PROC: 3E033VJ Introduction of Other Hormone into Peripheral Vein, Percutaneous Approach (ICD-10-PCS; 2022-05-31)
PROC: 10907ZC Drainage of Amniotic Fluid, Therapeutic from Products of Conception, Via Natural or Artificial Opening (ICD-10-PCS; principal; 2022-06-02)
PROC: 10E0XZZ Delivery of Products of Conception, External Approach (ICD-10-PCS; 2022-06-03)
DX: O13.4 Gestational [pregnancy-induced] hypertension without significant proteinuria, complicating childbirth (principal); Z37.0 Single live birth; O63.1 Prolonged second stage (of labor); Z3A.37 37 weeks gestation of pregnancy
CPT/HCPCS: 36415; 80053; 85025; 85027; 86850; 86900; 86901; 86920; A9270; J7120

== ENCOUNTER 2023-12-15 11:16 | Outpatient (CLI) | payer OTHER | END 2023-12-15 11:17 | disposition home or self-care (01) | LOC: LAB 11:16 | PROVIDERS: ATTEND Nurse Practitioner Obstetrics & Gynecology | DX: O36.80X0 Pregnancy with inconclusive fetal viability, not applicable or unspecified (principal) | CPT/HCPCS: 36415; 84702 ==

== ENCOUNTER 2023-12-17 13:39 | Outpatient (CLI) | payer OTHER | END 2023-12-17 13:40 | disposition home or self-care (01) | LOC: LAB 13:39 | PROVIDERS: ATTEND Nurse Practitioner Obstetrics & Gynecology | DX: O36.80X0 Pregnancy with inconclusive fetal viability, not applicable or unspecified (principal) | CPT/HCPCS: 36415; 84702 ==

== ENCOUNTER 2023-12-24 13:42 | Outpatient (CLI) | payer OTHER ==
--- NOTE | 2023-12-24 18:28 | Ultrasound Report ---
PROCEDURE: OB 1st Trimester INDICATIONS: THREATENED OUTSIDE/PRIOR DATING DATA: Last menstrual period (LMP): 10/21/2023. LMP-based estimated date of delivery (TESSA): 07/27/2024. First dating scan (date and location): 12/24/2023. Estimated date of delivery (TESSA) from first dating scan: 07/19/2024. TECHNIQUE: Real-time scanning was performed of the fetus and maternal pelvic organs, with image documentation. COMPARISON: None. FINDINGS: Intrauterine gestational sac present. Embryo: Gestational sac containing a pole with crown-rump length measuring 3.3 cm, consistent with 10 weeks and 2 days. Heart rate: 173 bpm. Other: No perigestational fluid collection. Measurement variability in dating: +/- 4 weeks by LMP, +/- 7 days by mean sac diameter (use before 6 weeks gestation if crown-rump length not able to be measured), +/- 5 days by crown-rump length (6-12 weeks gestation). Maternal organs: Ovaries appear within normal limits. Left corpus luteal cyst is seen. Cervix is dragan sed and within normal limits. IMPRESSION: Single live intrauterine consistent with 10 weeks and 2 days. Reviewed by: Augusto Goodrich MD on 12/24/2023 6:27 PM PDT Approved by: Augusto Goodrich MD on 12/24/2023 6:27 PM PDT Station ID: [id number]
== END 2023-12-24 13:43 | disposition home or self-care (01) ==
LOC: DI 13:42
PROVIDERS: ATTEND Nurse Practitioner Obstetrics & Gynecology
DX: O20.0 Threatened abortion (principal); Z3A.10 10 weeks gestation of pregnancy

== ENCOUNTER 2024-02-29 11:04 | Outpatient (CLI) | payer OTHER ==
--- NOTE | 2024-02-29 18:01 | Ultrasound Report ---
PROCEDURE: OB Anatomy Scan INDICATIONS: SUPERVISION OF OUTSIDE/PRIOR DATING DATA: Last menstrual period (LMP): 10/01/2023. LMP-based estimated date of delivery (TESSA): 07/27/2024. First dating scan (date and location): 12/24/2023. Estimated date of delivery (TESSA) from first dating scan: 07/19/2024. The below data below was generated using the sonographic TESSA of 07/19/2024 TECHNIQUE: Real-time scanning was performed of the fetus, with image documentation and biometric measurements. Endovaginal scanning: Not performed. COMPARISON: 12/24/2023 FINDINGS: General: A single living intrauterine gestation is present. Presentation: Variable Placenta: Placental position is posterior, without previa. There is a probable succenturiate lobe a long the left anterior margin. Amniotic fluid index: 11.5 cm, largest pocket is 3.2 cm, within normal limits for gestational age. heart rate: 162 beats per minute. Maternal cervical canal: Closed and 4.3 cm long; normal length is 2.5 cm or more. biometrics: Biparietal diameter: 4.8 cm, 20 weeks 3 days, 72nd percentile Head circumference: 17.2 cm, 19 weeks 5 days, 38th percentile Abdominal circumference: 14.2 cm, 19 weeks 4 days, 35th percentile Femur length: 2.9 cm, 19 weeks, 0 days, 15th percentile Estimated gestational age from initial scan: 19 weeks 6 days Composite gestational age from present scan: 19 weeks 5 days Estimated weight and percentile: 290 g 22nd percentile Measurement variability in biometric dating: +/- 10 days from 12-20 weeks gestation, +/- 2 weeks from 20-30 weeks gestation, +/- 3 weeks at 30 weeks gestation or later. Anatomic survey: Neuro: Ventricles are normal at less than 10 mm. Cisterna magna is normal at 3-11 mm. Cerebellum i s normal in size and morphology. Nuchal skin fold: Normal at less than 6 mm between 14 and 20 weeks gestational age. Face: Nose and lips, facial profile are normal. Spine: No evidence for spina bifida. Heart: 4-chambered heart is present, with normal ventricular outflow tracts. Diaphragm: Diaphragm is intact. Stomach: Left-sided stomach is present. Kidneys: No hydronephrosis. Normal is less than 5 mm in 2nd trimester, less than 7 mm in 3rd trimester. Cord: 3 vessel cord has orthotopic insertion. Bladder: Normal in size. Extremities: All 4 extremities are visualized. IMPRESSION: Single living intrauterine with estimated weight at the 22nd percentile. Symmetric growth and normal anatomy. Composite gestational age is one day behind the expected g estational age. Posterior placenta with probable succenturiate lobe. Normal amniotic fluid volume. Reviewed by: Jazmin Davis MD on 02/29/2024 5:59 PM PDT Approved by: Jazmin Davis MD on 02/29/2024 5:59 PM PDT Station ID: [id number]
== END 2024-02-29 11:05 | disposition home or self-care (01) ==
LOC: DI 11:04
PROVIDERS: ATTEND Nurse Practitioner Obstetrics & Gynecology
DX: Z34.02 Encounter for supervision of normal first pregnancy, second trimester (principal); Z36.89 Encounter for other specified antenatal screening

== ENCOUNTER 2024-04-13 10:11 | Outpatient (CLI) | payer OTHER ==
[2024-04-13 11:24] LABS: HCT - HEMATOCRIT 36.8 % (37.0-47.0); HGB - HEMOGLOBIN 12.2 g/dL (12.0-16.0); MEAN CORPUSCULAR HEMOGLOBIN 29.8 pg (27.0-31.0); MEAN CORPUSCULAR HGB CONC 33.2 g/dL (32.0-36.0); MEAN CORPUSCULAR VOLUME 89.8 fL (81.0-99.0); MEAN PLATELET VOLUME 9.3 fL (7.9-10.8); RED BLOOD COUNT 4.1 10^6/uL (4.20-5.40); RED CELL DISTRIBUTION WIDTH 13.1 % (12.0-15.0); WHITE BLOOD COUNT 9.4 x10^3/uL (4.8-10.8)
== END 2024-04-13 10:12 | disposition home or self-care (01) ==
LOC: LAB 10:11
PROVIDERS: ATTEND Nurse Practitioner Obstetrics & Gynecology
DX: Z34.90 Encounter for supervision of normal pregnancy, unspecified, unspecified trimester (principal)
CPT/HCPCS: 36415; 82950; 85027

== ENCOUNTER 2024-04-20 08:05 | Outpatient (CLI) | payer OTHER ==
[2024-04-20 08:56] LABS: GTT GLUCOSE,FASTING 81 mg/dL (74-109)
== END 2024-04-20 08:06 | disposition home or self-care (01) ==
LOC: LAB 08:05
PROVIDERS: ATTEND Nurse Practitioner Obstetrics & Gynecology
DX: O99.810 Abnormal glucose complicating pregnancy (principal)
CPT/HCPCS: 36415; 82951; 82952

== ENCOUNTER 2024-06-29 05:45 | Inpatient (IN) ==
[2024-06-29] MEDS ORDERED: SODIUM CHLORIDE FLUSH 0.9% 10 ML SYRINGE IVP PRN ×3 (05:50→09:13)
[2024-06-29] MEDS ORDERED: RHO(D) IMMUNE GLOBULIN 300 MCG SYRINGE IM PRN (05:50)
[2024-06-29] MEDS ORDERED: MINERAL OIL LIGHT 10 ML TOP SCH (06:00)
[2024-06-29] MEDS ORDERED: TERBUTALINE 1 MG/ML VIAL SUBQ PRN (06:08)
[2024-06-29 07:14] LABS: HCT - HEMATOCRIT 37.4 % (37.0-47.0); HGB - HEMOGLOBIN 12.4 g/dL (12.0-16.0); MEAN CORPUSCULAR HEMOGLOBIN 28.9 pg (27.0-31.0); MEAN CORPUSCULAR HGB CONC 33.2 g/dL (32.0-36.0); MEAN CORPUSCULAR VOLUME 87.2 fL (81.0-99.0); MEAN PLATELET VOLUME 10.7 fL (7.9-10.8); RED BLOOD COUNT 4.29 10^6/uL (4.20-5.40); RED CELL DISTRIBUTION WIDTH 13.5 % (12.0-15.0); WHITE BLOOD COUNT 10.2 x10^3/uL (4.8-10.8)
[2024-06-29] MEDS ORDERED: BUPIVACAINE 0.25% PF 10 ML VIAL ONE (07:32)
--- NOTE | 2024-06-29 07:40 | HISTORY & PHYSICAL EXAMINATION ---
Admit History Smoking Status: Never smoker Other Maternal History Other Maternal History: HPI: Patient is a 34-year-old -0-1-1 at 37 weeks 1 day gestation presenting for external cephalic version with planned induction afterwards for preeclampsia without severe features.. She has good movement. Denies loss of fluid. No SAHU/BV or RUQP. No vaginal bleeding. Denies nausea and vomiting. Denies urinary urgency or dysuria. All other symptoms reviewed and were negative except per HPI. Course LMP: 10/21/2023 TESSA by LMP: 07/27/2024 Initial U/S: not c/w lmp 07/19/2024 FINAL TESSA: 07/19/2024 PROBLEMS: Pre-eclampsia without severe features Hx Gestational HTN: LDASA @12wks, tracking BPs at home, baseline labs WNL Pre- Weight: 162 Blood type O+ Rh positive Antibody Negative CBC: PLT 337 HCT 38.3 HGB 12.9 RUB: Immune VZV: Immune HBsAg Negative HepC NR RPR/AB-EIA: NR HIV: NR PAP: 12/2019 normal GC/CT: neg HSV: denies in self and partner Genetic testin/10 NIPT- Negative Covid: x 4 (most recent 05/13/2024) Flu: 05/13/2024 FAS: 02/29/2024 Placenta: Posterior w/ probable succenturiate lobe along left anterior margin Cord: 3VC TALIA: 11.5cm EFW: 290g 22%tile 50gm OGCT: 160* 3HR GTT: WNL: 81, 167, 140, 98 TDAP: 05/13/2024 Breast Pump: has 3rd trimester H/H 12.0/35.7 PLT 329 GBS: positive (pt believes she contaminated it with the toilet), repeat swab negative, repeat swab x 2 pending Delivery plan: Delivery at 37wks s/p successful ECV due to preeclampsia without severe features or sooner if medically indicated with worsening severity of condition MOD: Contraception: pp BTL Meds/Allgy Home Medications Ambulatory Orders Medication Instructions Recorded Confirmed aspirin 81 mg tablet,delayed 81 mg PO QDAY 05/11/24 06/24/24 release vits no.126-ferrous fum 1 tab PO .DAILY 05/11/24 06/24/24 28 mg iron-folic acid 800 mcg supplement tablet (Classic ) Allergies Allergies Allergy/AdvReac Type Severity Reaction Status Date / Time No Known Drug Allergies Allergy Verified 06/24/24 15:09 [facility] Medical History Medical History (Updated 06/29/24 @ 06:09 by Randy Larson MD) Elevated blood-pressure reading, without diagnosis of hypertension Vulvar cyst Vaginal delivery Social History Social History Smoking Status: Never smoker Do you dip or chew tobacco?: No Relationship: Spouse Physical Other Notes Labor Progress Note/Additional Text: General: Alert, oriented, no acute distress Head: Normal cephalic atraumatic Eyes: PERRLA, extraocular motions intact. Respiratory: Normal rate of respiration. No accessory muscle use, normal respiratory effort. Cardiovascular: Regular rate and rhythm Abdomen: Gravid, nontender, nondistended Extremities: Normal range of motion Neuro: Oriented x3. Normal movements Psych: Appropriate mood and affect. Normal judgment and insight Ultrasound: Fetus with head to maternal left, back anterior FHT: 135 bpm baseline, moderate variability, accelerations present, no decelerations. Reactive NST [place]: Quiescent Plan for Labor Plan For Labor I expect patient to be DC'd or transferred within 96 hours.: Yes Conclusion/Plan Problem List (1) malpresentation: Plan: Patient breech. Will attempt external cephalic version. Discussed the risk, benefits, alternatives of external cephalic version. Discussed risk of heart rate changes being the most common. These are usually temporary and resolve after cessation of procedure. Discussed the risk of placental disruption, bleeding, rupture membranes, urgent section, failure of procedure. Patient understands and would like to proceed with scheduling. Start with terbutaline and spinal anesthesia. Discussed risks and benefits of spinal versus combined spinal epidural. Patient would like a spinal and replaced epidural later if necessary. Discussed risks of urgent section, but also very low risk. (2) Pre-eclampsia affecting , antepartum: Plan: No severe range features at this time. Had one blood pressure diastolic 110, but normal on repeat. Lab Results 06/29/24 06:20
[2024-06-29] MEDS: TERBUTALINE 1 MG/ML VIAL SUBQ PRN (07:50)
[2024-06-29] MEDS ORDERED: ePHEDrine 50 MG/ML VIAL IVP ONE (08:03)
[2024-06-29] MEDS ORDERED: LACTATED RINGERS 1,000 ML ONE (08:03)
--- NOTE | 2024-06-29 08:08 | PROCEDURE REPORT ---
Hospitalist Procedure Note Procedure Note Procedure Note: Procedure date: 06/29/24 Procedure: External cephalic version Indication: Breech presentation, 37 weeks gestation Patient consent: Patient consented to the risks of external cephalic version including the risk of heart rate changes, bleeding, placental abruption, rupture membranes, emergency section, cord prolapse, hemorrhage, stillbirth. Discussed the benefits [place] avoiding a planned section. Discussed we are not successful we will abandon procedure and plan a section. Patient agrees to this and desires to proceed. Anesthesia: Spinal Complications: None Estimated blood loss: None Postop diagnosis: Successful external cephalic version, cephalic presentation, 37 weeks gestation Procedure summary: Patient is a 34-year-old at 37 weeks who presented for an external cephalic version for breech presentation. Time out was taken. She was taken to the triage room where spinal anesthesia was adequate. Under ultrasound guidance, the fetus was noted to be in breech presentation with head to maternal left upper quadrant and baby in cari breech position. The patient was given terbutaline for uterine relaxation. Using gentle, steady pressure, the head was rotated clockwise as the back was lifted out of the pelvis. Intermittent ultrasound was used to confirm movement. Overall the procedure took approximately 10 minutes. Ultrasound confirmed cephalic presentation. A belly binder was placed until the effects of the terbutaline wore off. Patient was monitored with a reactive NST after the procedure. I appreciate the assistance of LENO Oreilly during this procedure, and the assistance during the case was instrumental to the patient's wellbeing.
[2024-06-29] MEDS: LACTATED RINGERS 1,000 ML IV ONE (08:15)
[2024-06-29] MEDS ORDERED: CARBOPROST TROMETHAMINE 250 MCG/ML VIAL IM PRN (09:13)
[2024-06-29] MEDS ORDERED: NIFEdipine 10 MG CAPSULE PO PRN (09:13)
[2024-06-29] MEDS ORDERED: lidocaine 1% 20 ML MDV ID PRN (09:13)
[2024-06-29] MEDS ORDERED: hydrALAZINE INJ 20 MG/ML VIAL IVP PRN ×2 (09:13)
[2024-06-29] MEDS ORDERED: OXYTOCIN 10 UNIT/ML VIAL IM PRN (09:13)
[2024-06-29] MEDS ORDERED: LABETALOL 20 MG/4 ML SYRINGE IVP PRN ×3 (09:13)
[2024-06-29] MEDS ORDERED: miSOPROStoL 200 MCG TABLET BC PRN (09:13)
[2024-06-29] MEDS ORDERED: TRANEXAMIC ACID IN NACL 1,000 MG/100 ML BAG IV PRN (09:13)
--- NOTE | 2024-06-29 09:31 | HISTORY & PHYSICAL EXAMINATION ---
Admit History Smoking Status: Never smoker Meds/Allgy Home Medications Ambulatory Orders Medication Instructions Recorded Confirmed aspirin 81 mg tablet,delayed 81 mg PO QDAY 05/11/24 06/24/24 release vits no.126-ferrous fum 1 tab PO .DAILY 05/11/24 06/24/24 28 mg iron-folic acid 800 mcg supplement tablet (Classic ) Allergies Allergies Allergy/AdvReac Type Severity Reaction Status Date / Time No Known Drug Allergies Allergy Verified 06/24/24 15:09 [facility] Medical History Medical History (Updated 06/29/24 @ 06:09 by Randy Larson MD) Elevated blood-pressure reading, without diagnosis of hypertension Vaginal delivery Vulvar cyst Social History Social History Smoking Status: Never smoker Do you dip or chew tobacco?: No Relationship: Spouse Plan for Labor Plan For Labor I expect patient to be DC'd or transferred within 96 hours.: Yes Plan for Labor: Etta is a 34yo @ 37.1wks gestation who presents today to [facility] for medical induction of labor for external cephalic version with subsequent medical induction of labor secondary to preeclampsia without severe features. Dr. Larson successfully moved fetus to cephalic presentation and both patient and fetus tolerated procedure well. She denies vaginal bleeding, leakage of fluid or contractions. She reports +FM. She denies headache, visual disturbances, RUQ or epigastric pain. She is feeling anxious today given the day's proceedings as she is really hoping for a low intervention labor and delivery experience. She strongly wishes to avoid pitocin for induction of labor if possible. She has been a patient of [facility] since her transfer of care from [facility] at 25wks gestation. Her has been complicated by gestational hypertension which progressed to preeclampsia without severe features at 35 weeks gestation. Her blood pressures have remained mild range and her CBC and CMP have remained WNL throughout. She will be admitted to [facility] for medical management of labor. Plan for multiple bedside ultrasounds in labor to confirm vertex presentation secondary to unstable lie. LMP: 10/21/2023 TESSA by LMP: 07/27/2024 Initial U/S: not c/w lmp 07/19/2024 FINAL TESSA: 07/19/2024 PROBLEMS: Pre-eclampsia without severe features Hx Gestational HTN: LDASA @12wks, tracking BPs at home, baseline labs WNL Pre- Weight: 162 Blood type O+ Rh positive Antibody Negative CBC: PLT 337 HCT 38.3 HGB 12.9 RUB: Immune VZV: Immune HBsAg Negative HepC NR RPR/AB-EIA: NR HIV: NR PAP: 12/2019 normal GC/CT: neg HSV: denies in self and partner Genetic testin/10 NIPT- Negative Covid: x 4 (most recent 05/13/2024) Flu: 05/13/2024 FAS: 02/29/2024 Placenta: Posterior w/ probable succenturiate lobe along left anterior margin Cord: 3VC TALIA: 11.5cm EFW: 290g 22%tile 50gm OGCT: 160* 3HR GTT: WNL: 81, 167, 140, 98 TDAP: 05/13/2024 Breast Pump: has 3rd trimester H/H 12.0/35.7 PLT 329 GBS: positive (pt believes she contaminated it with the toilet), repeat swab negative, repeat swab x 2 pending Delivery plan: Delivery at 37wks s/p successful ECV due to preeclampsia without severe features or sooner if medically indicated with worsening severity of condition MOD: Contraception: pp BTL Physical exam: Normocephalic, atraumatic Heart RRR w/o M/G/R Lungs CTAB Abdomen gravid, soft, nontender FHR baseline 150s, moderate variability, + accels, no decels No contractions appeciated via tocometry DTRs 2+, no clonus Bilateral LE's trace edema Mood is anxious however stable Assessment: 34yo @ 37.1wks gestation Preeclampsia without severe features Unstable lie s/p successful external cephalic version 06/29/2024 Medical induction of labor with pre-induction cervical ripening GBS negative FHR Category I Conclusion/Plan Problem List (1) malpresentation: (2) Pre-eclampsia affecting , antepartum: Lab Results 06/29/24 06:20
[2024-06-29 09:42] LABS: BASOPHILS % (AUTO) 0.4 %; EOSINOPHILS # (AUTO) 0.1 10^3/uL (0.0-0.7); EOSINOPHILS % (AUTO) 0.9 %; HCT - HEMATOCRIT 37.8 % (37.0-47.0); LYMPHOCYTES # (AUTO) 1.9 10^3/uL (1.5-3.5); LYMPHOCYTES % (AUTO) 20.3 %; MEAN CORPUSCULAR HEMOGLOBIN 28.3 pg (27.0-31.0); MEAN CORPUSCULAR HGB CONC 31.7 g/dL (32.0-36.0); MEAN CORPUSCULAR VOLUME 89.2 fL (81.0-99.0); MEAN PLATELET VOLUME 10.5 fL (7.9-10.8); MONOCYTES # (AUTO) 0.8 10^3/uL (0.0-1.0); NEUTROPHILS # (AUTO) 6.3 10^3/uL (1.5-6.6); NEUTROPHILS % (AUTO) 68.4 %; PLT - PLATELET COUNT 281 10^3/uL (130-450); RED BLOOD COUNT 4.24 10^6/uL (4.20-5.40); RED CELL DISTRIBUTION WIDTH 13.5 % (12.0-15.0); WHITE BLOOD COUNT 9.2 x10^3/uL (4.8-10.8)
--- NOTE | 2024-06-29 09:48 | ANESTHESIA PROCEDURE NOTE ---
Pre-Anesthesia VS, & Labs Diagnosis Surgical Diagnosis:: breech presentation Procedure Procedure: version NPO NPO: >8 hours Is Patient ?: Yes Lab Results Current Lab Results: Laboratory Tests 06/29/24 06:20: WBC 10.2, RBC 4.29, Hgb 12.4, Hct 37.4, MCV 87.2, MCH 28.9, MCHC 33.2, RDW 13.5, Plt Count 320, MPV 10.7, Blood Type O POSITIVE, Antibody Screen NEGATIVE Lab results reviewed: Yes 06/29/24 06:20 Meds/Allgy Home Medications Ambulatory Orders Medication Instructions Recorded Confirmed aspirin 81 mg tablet,delayed 81 mg PO QDAY 05/11/24 06/24/24 release vits no.126-ferrous fum 1 tab PO .DAILY 05/11/24 06/24/24 28 mg iron-folic acid 800 mcg supplement tablet (Classic ) Allergies Allergies Allergy/AdvReac Type Severity Reaction Status Date / Time No Known Drug Allergies Allergy Verified 06/24/24 15:09 [facility] Medical History Medical History (Updated 06/29/24 @ 06:09 by Randy Larson MD) Elevated blood-pressure reading, without diagnosis of hypertension Vaginal delivery Vulvar cyst Social History Social History Smoking Status: Never smoker Do you dip or chew tobacco?: No Relationship: Spouse Anesthesia Exam (Expanded) Exam General: Alert and Oriented x3 Dental: WNL Mouth Openin Fingerbreadth (FB) Neck Mobility: Normal Mallampati classification: II Thyromental Distance: greater than 6 cm Respiratory: Lungs clear Cardiovascular: Regular rate Plan Problem List (1) malpresentation: Plan: Patient breech. Will attempt external cephalic version. Discussed the risk, benefits, alternatives of external cephalic version. Discussed risk of heart rate changes being the most common. These are usually temporary and resolve after cessation of procedure. Discussed the risk of placental disruption, bleeding, rupture membranes, urgent section, failure of procedure. Patient understands and would like to proceed with scheduling. Start with terbutaline and spinal anesthesia. Discussed risks and benefits of spinal versus combined spinal epidural. Patient would like a spinal and replaced epidural later if necessary. Discussed risks of urgent section, but also very low risk. (2) Pre-eclampsia affecting , antepartum: Plan: No severe range features at this time. Had one blood pressure diastolic 110, but normal on repeat. Plan Anesthesia Type: Spinal Consent for Procedure(s) Verified and Reviewed: Yes Code Status: Attempt Resuscitation ASA Classification ASA classification: 2-Mild systemic disease Is this case an emergency?: No
[2024-06-29 09:58] LABS: ALBUMIN 3.3 g/dL (3.2-5.5); ALBUMIN/GLOBULIN RATIO 1.1 (1.0-2.2); BILIRUBIN,TOTAL 0.3 mg/dL (0.2-1.0); CALCIUM 9.1 mg/dL (8.5-10.3); CREATININE 0.6 mg/dL (0.6-1.3); POTASSIUM 3.4 mmol/L (3.5-4.5); TOTAL PROTEIN 6.3 g/dL (6.4-8.9)
--- NOTE | 2024-06-29 10:48 | PHARMACY PROGRESS NOTE ---
Best Possible Medication History Admit Date and Time: 06/29/24 [id number] Home Medications Medication Instructions Recorded Confirmed Type aspirin 81 mg tablet,delayed 81 mg PO QDAY 05/11/24 06/29/24 History release vits no.126-ferrous fum 1 tab PO DAILY supplement 05/11/24 06/29/24 History 28 mg iron-folic acid 800 mcg tablet (Classic ) Processed by: Pharmacy Medications reviewed in ED?: No Medication History completed: Yes Patient Interview: Completed Secondary Source(s): Insurance records [facility] Statement: As the person ultimately responsible for medication therapy, providers are able to order a medication from an existing home medication list in [facility] via the "Reconcile Routine" prior to Confirmation of that medication by data support analyst. Such practice is discouraged except when the physician, in their clinical judgment, deems that a medical need exists for a medication without regard to previous use.
--- NOTE | 2024-06-29 11:50 | PROVIDER PROGRESS NOTE ---
Labor Progress Note Labor Progress Note Labor Progress Note/Additional Text: Vertex presentation verified by BSUS. Cervical ripening balloon in place with 80cc intrauterine and 80cc vaginal balloon. Initiating 50mcg BC misoprostol now. Reevaluate prior to administration of next misoprostol dose in 4 hours or sooner PRN.
[2024-06-29] MEDS: miSOPROStoL 100 MCG TABLET BC SCH (12:05)
--- NOTE | 2024-06-29 17:18 | PROVIDER PROGRESS NOTE ---
Labor Progress Note Labor Progress Note Labor Progress Note/Additional Text: S: Etta is feeling increased discomfort with contractions and she is rating them 7/10 on a pain scale. She is currently sitting at the bedside on the exercise ball. She continues to deny headache, visual disturbances, RUQ or epigastric pain. O: FHR baseline 140s, moderate variability, + accels, no decels Contractions palpate mild to moderate every 3-4 minutes with soft resting tone Cervical ripening balloon expelled with gentle traction SVE 6-7/70/-2, vertex. Vertex confirmed by BSUS AROM moderate amount of clear fluid A: 34yo @ 37.1wks gestation Early labor Preeclampsia without severe features Advanced maternal age GBS negative FHR Category I Plan: Continuos monitoring. Repeat SVE in 4 hours or sooner PRN. Jacuzzi PRN. Nitrous oxide PRN. Epidural per maternal request. Anticipate .
[2024-06-29] MEDS ORDERED: LIDOCAINE 2%-EPI 1:100000 20 ML MDV ONE (21:06)
[2024-06-29] MEDS ORDERED: ROPIVACAINE 0.2% 200 MG/100 ML BAG EP ONE (21:07)
[2024-06-29] MEDS ORDERED: NALBUPHINE 10 MG/ML AMP IVP PRN (21:58)
[2024-06-29] MEDS ORDERED: NALOXONE 0.4 MG/ML VIAL IVP PRN (21:58)
[2024-06-29] MEDS ORDERED: METOCLOPRAMIDE 10 MG/2 ML VIAL IVP PRN (21:58)
[2024-06-29] MEDS ORDERED: ONDANSETRON 4 MG/2 ML VIAL IVP PRN (21:58)
--- NOTE | 2024-06-29 21:59 | PROVIDER PROGRESS NOTE ---
Labor Progress Note Labor Progress Note Labor Progress Note/Additional Text: S: Pt starting to feeling comfortable with epidural after recent placement. She is feeling increased rectal pressure. She states she is tired and hoping to get a nap prior to delivery. Jesus is supportive at the bedside. Continues to deny SAHU, visual disturbances, RUQ or epigastric pain. O: FHR baseline 140s, moderate variability, + accels, no decels Contractions palpate moderate every 2-4 minutes with soft resting tone SVE 7/80/-2, vertex Vertex verified by BUSUS A: 34yo @ 37.1wks gestation Preeclampsia without severe features Advanced maternal age GBS negative FHR Category I P: Continuos monitoring. Maintain epidural for pain management. Encouraged position changes in bed on peanut ball while also promoting rest. Plan repeat SVE in 4 hours or sooner PRN. Will initiate pitocin if contractions decrease in frequency less than q 3-4 minutes. Pt verbalized understanding and agrees to above plan. She denies further questions or concerns at this time.
[2024-06-29] MEDS: ePHEDrine 50 MG/ML VIAL IVP PRN (22:23)
[2024-06-29] MEDS: LACTATED RINGERS 500 ML IV ONE (22:33)
[2024-06-30] MEDS: OXYTOCIN/SODIUM CHLORIDE 500 ML IV SCH (00:48)
[2024-06-30] MEDS ORDERED: LACTATED RINGERS 1,000 ML ONE (03:01)
[2024-06-30] MEDS: ROPIVACAINE 0.2% 200 MG/100 ML BAG EP PRN (03:33)
[2024-06-30] MEDS ORDERED: LIDOCAINE 2%-EPI 1:100000 20 ML MDV ONE (07:14)
[2024-06-30] MEDS ORDERED: SODIUM CHLORIDE 0.9% 0 ML ONE (08:10)
[2024-06-30] MEDS ORDERED: diphenhydrAMINE INJ 50 MG/ML VIAL IVP PRN (08:46)
--- NOTE | 2024-06-30 08:51 | PROVIDER PROGRESS NOTE ---
Labor Progress Note Labor Progress Note Labor Progress Note/Additional Text: S: Feeling comfortable with epidural. She was able to get some rest last night but continues to feel tired this morning. Her mood is good and her is supportive at the bedside. She denies SAHU, visual disturbances, RUQ or epigastric pain. O: FHR baseline 150s, moderate variability, no accels, recurrent variable decelerations Contractions palpate strong every 4 minutes with soft resting tone SVE 9/100/-1, vertex. Mild edema to anterior lip of cervix noted A: 34yo @ 37.2wks gestation Preeclampsia without severe features Advanced maternal age FHR Category I - overall reassuring with maintaining moderate variability GBS negative P: Continuous monitoring Benadryl IVP 25mg now for cervical edema Rotation in bed on peanut ball. Anticipate
[2024-06-30] MEDS: diphenhydrAMINE INJ 50 MG/ML VIAL IVP PRN (08:56)
[2024-06-30] MEDS: SODIUM CHLORIDE FLUSH 0.9% 10 ML SYRINGE IVP SCH (09:10)
[2024-06-30] MEDS: OXYTOCIN/SODIUM CHLORIDE 500 ML IV PRN (10:11)
[2024-06-30] MEDS ORDERED: OXYTOCIN/SODIUM CHLORIDE 500 ML IV PRN (10:13)
[2024-06-30] MEDS ORDERED: WITCH HAZEL/GLYCERIN 1 PAD TOP PRN (10:13)
[2024-06-30] MEDS ORDERED: HYDROCORTISONE 1% CREAM 28 GM TUBE TOP PRN (10:13)
--- NOTE | 2024-06-30 10:22 | DELIVERY NOTE ---
Delivery Note Delivery Outcome Delivery Date: 06/30/24 Delivery Comments (Free Text/Narrative) Delivery Comments (Free Text/Narrative): Labor: This 34yo @ 39.2wks gestation presented to [facility] for medical induction of labor for preeclampsia without severe features following successful external cephalic version. Cervix was 3/50/-3. A cervical ripening balloon was placed and was spontaneously expelled. FHR demonstrated Category I pattern throughout labor with occasionally period of Category II which overall remained reassuring. Normal labor course. Epidural placed per maternal request. AROM occurred @ 1637 and was noted to be a moderate amount of clear fluid. She progressed to c/c and pushing at 0908. : Normal SVB of viable male on 06/30/2024 @ 0944. Nucal cord x 1 was reduced. The was placed on maternal abdomen, stimulated, dried, and placed skin to skin. 's were 8/9 at 1 and 5 min respectively. Pitocin administered via IV for hemostasis. The umbilical cord was allowed to stop pulsating at which time it was doubly clamped by CNM and cut by FOB. Cord blood was obtained. 3VC. Fundal massage and gentle cord traction applied for active management of the third stage. Placenta delivered spontaneously and intact at 0954. EBL 300mL. Fourth stage: Uterine fundus firm and there is no excessive bleeding. The perineum, vagina, and cervix were inspected and found to be intact. Tissues well approximated. initiated. Both mother and baby were left in stable condition.
[2024-06-30] MEDS: ACETAMINOPHEN 500 MG TABLET PO PRN (11:00)
[2024-06-30] MEDS: IBUPROFEN 600 MG TABLET PO SCH (11:18)
[2024-06-30] MEDS: DOCUSATE SODIUM 100 MG CAPSULE PO SCH (22:50)
--- NOTE | 2024-07-01 08:42 | PROVIDER PROGRESS NOTE ---
Subjective Subjective Subjective: HPI: Reports she is doing well Comfortable without narcotic pain management lochia appropriate. Denies heavy bleeding Ambulating Pelvic and pain well controlled. Increased ache to lower back, near epidural site. Feels Tylenol helps more than Motrin Tolerating oral intake. Diet: Regular Voiding without difficulty Bonding with baby in room and bottle feeding. Baby prefers one side. Able to accommodate by side lying. Denies headache, change in vision, right upper quadrant pain. Denies Nausea and vomiting. Woke up this morning with moderate facial edema. Significantly improved a few hours later. No bruising. BP the last 24 hours 140-149/90-100 Most recent BP: 140/100 Most recent labs: PLT: 249 Serum Creatinine: 0.6 AST: 19 ALT: 10 Physical Exam Constitutional: alert, no acute distress, well hydrated, well developed, well nourished, appropriate dress. Cardiovascular: Regular rate and rhythm. Respiratory: no respiratory distress. Clear to auscultation bilaterally Abdomen: nondistended, nontender, no guarding. Neuro: 2+ DTRs, no clonus Psych: affect and mood appropriate, normal interaction, good eye contact. Current Medications Current Medications Current Medications: Current Medications Generic Name Dose Route Start Last Admin Trade Name Freq PRN Reason Stop Dose Admin Acetaminophen 1,000 mg 06/30/24 10:13 06/30/24 11:00 Acetaminophen 500 Mg Tablet PO 1,000 mg Q8HR PRN Administration Mild Pain or Fever>38C(100.4F) Carboprost Tromethamine 250 mcg 06/29/24 09:13 Carboprost Tromethamine 250 Mcg/Ml Vial IM 07/04/24 09:13 Q15M PRN Step 4: Hemorrhage protocol Diphenhydramine HCl 12.5 - 25 mg 06/29/24 21:58 06/30/24 08:56 Diphenhydramine Inj 50 Mg/Ml Vial IVP 25 mg Q6HR PRN Administration ITCHING Diphenhydramine HCl 25 mg 06/30/24 08:46 Diphenhydramine Inj 50 Mg/Ml Vial IVP Q6H PRN Allergy Symptoms Docusate Sodium 100 mg 06/30/24 21:00 06/30/24 22:50 Docusate Sodium 100 Mg Capsule PO Not Given BID DEMETRIUS Ephedrine Sulfate 5 mg 06/29/24 21:58 06/29/24 22:35 Ephedrine 50 Mg/Ml Vial IVP 5 mg Q5M PRN Administration For SBP<100;give until SBP>100 Hydralazine HCl 5 - 20 mg 06/29/24 09:13 Hydralazine Inj 20 Mg/Ml Vial IVP Q20M PRN SBP >160 or DBP >110 Protocol Hydralazine HCl 10 mg 06/29/24 09:13 Hydralazine Inj 20 Mg/Ml Vial IVP 07/04/24 09:13 .ONCE PRN Step 9 of Labetalol protocol Protocol Hydrocortisone 1 applic 06/30/24 10:13 Hydrocortisone 1% Cream 28 Gm Tube TOP QID PRN PERINEAL REPAIR Oxytocin/Sodium Chloride 500 mls @ 999 mls/hr 06/29/24 09:13 06/30/24 11:00 Pitocin/Sodium Chloride IV 07/04/24 09:14 Infused PRN PRN Titration POST- HEMORR PREVENTION Protocol 999 MILLIUNIT/MIN Tranexamic Acid 1,000 mg in 100 mls @ 600 mls/hr 06/29/24 09:13 Tranexamic 1,000 Mg/100ml-Nacl IV 07/04/24 09:13 .ONCE PRN EBL >1200mL and within 3hr Ropivacaine 200 mg in 100 mls @ 0 mls/hr 06/29/24 21:58 06/30/24 10:10 Naropin 0.2% EP 0 mls/hr PRN PRN Infusion PAIN Protocol Per Protocol Oxytocin/Sodium Chloride 500 mls @ 2 mls/hr 06/30/24 01:00 06/30/24 10:00 Pitocin/Sodium Chloride IV 0 milliunit/min TITR DEMETRIUS 0 mls/hr Titration Protocol 2 MILLIUNIT/MIN Oxytocin/Sodium Chloride 500 mls @ 999 mls/hr 06/30/24 10:13 Pitocin/Sodium Chloride IV PRN PRN POST- HEMORR PREVENTION Protocol 999 MILLIUNIT/MIN Ibuprofen 600 mg 06/30/24 11:00 06/30/24 18:28 Ibuprofen 600 Mg Tablet PO 600 mg Q6HR DEMETRIUS Administration Labetalol HCl 20 - 80 mg 06/29/24 09:13 Labetalol 20 Mg/4 Ml Syringe IVP Q10M PRN SBP >160 or DBP >110 Protocol Labetalol HCl 20 mg 06/29/24 09:13 Labetalol 20 Mg/4 Ml Syringe IVP 07/04/24 09:13 .ONCE PRN Step 9 of nifedipine protocol Protocol Labetalol HCl 40 mg 06/29/24 09:13 Labetalol 20 Mg/4 Ml Syringe IVP 07/04/24 09:13 .ONCE PRN Step 9 of hydrALAZine protocol Protocol Lidocaine HCl 20 ml 06/29/24 09:13 Lidocaine 1% 20 Ml Mdv ID 07/04/24 09:13 .ONCE PRN PERINEAL REPAIR Metoclopramide HCl 10 mg 06/29/24 21:58 Metoclopramide 10 Mg/2 Ml Vial IVP Q6HR PRN Nausea / Vomiting Mineral Oil 10 ml 06/29/24 06:00 Mineral Oil Light 10 Ml TOP .ONCE DEMETRIUS Misoprostol 800 mcg 06/29/24 09:13 Misoprostol 200 Mcg Tablet BC 07/04/24 09:13 .ONCE PRN Step 3: Hemorrhage protocol Nalbuphine HCl 2.5 - 5 mg 06/29/24 21:58 Nalbuphine 10 Mg/Ml Amp IVP Q4H PRN ITCHING Naloxone HCl 0.1 mg 06/29/24 21:58 Naloxone 0.4 Mg/Ml Vial IVP Q2M PRN RR<8 Nifedipine 10 - 20 mg 06/29/24 09:13 Nifedipine 10 Mg Capsule PO Q20M PRN SBP >160 or DBP >110 Protocol Ondansetron HCl 4 mg 06/29/24 21:58 Ondansetron 4 Mg/2 Ml Vial IVP Q6HR PRN Nausea / Vomiting Oxytocin 10 unit 06/29/24 09:13 Oxytocin 10 Unit/Ml Vial IM 07/04/24 09:13 .ONCE PRN Step one: If no IV access Rho Immune Globulin 300 mcg 06/29/24 05:50 Rho(D) Immune Globulin 300 Mcg Syringe IM .ONCE PRN For Rh incompatibilty. Simethicone 80 mg 06/30/24 10:13 Simethicone Chew 80 Mg Tablet PO TID PRN Gas Sodium Chloride 10 ml 06/29/24 05:50 Sodium Chloride Flush 0.9% 10 Ml Syringe IVP PRN PRN NEEDED PER PROVIDER ORDERS Sodium Chloride 10 ml 06/29/24 06:08 Sodium Chloride Flush 0.9% 10 Ml Syringe IVP PRN PRN NEEDED PER PROVIDER ORDERS Sodium Chloride 10 ml 06/29/24 17:00 06/30/24 09:30 Sodium Chloride Flush 0.9% 10 Ml Syringe IVP Not Given 0100,0900,1700 DEMETRIUS Sodium Chloride 10 ml 06/29/24 09:13 Sodium Chloride Flush 0.9% 10 Ml Syringe IVP PRN PRN NEEDED PER PROVIDER ORDERS Terbutaline Sulfate 0.25 mg 06/29/24 05:50 06/29/24 07:50 Terbutaline 1 Mg/Ml Vial SUBQ 0.25 mg .ONCE PRN Administration Breech presentation Terbutaline Sulfate 0.25 mg 06/29/24 06:08 Terbutaline 1 Mg/Ml Vial SUBQ .ONCE PRN Breech presentation Witch Pam/Glycerin 1 pad 06/30/24 10:13 Witch Pam/Glycerin 1 Pad TOP PRN PRN PERINEAL REPAIR Objective Vital Signs/Intake & Output Vital Signs: Vital Signs x48h Temp Pulse Resp BP Pulse Ox 07/01/24 08:15 36.6 C 71 16 140/100 H 100 07/01/24 03:30 36.6 C 69 16 148/90 H 99 07/01/24 01:00 67 146/90 H Intake & Output: Intake & Output 06/29/24 06/30/24 07/01/24 07/02/24 05:59 05:59 05:59 05:59 Intake Total 208 / 208 1125 / 1125 Output Total 425 / 425 725 / 725 Balance -217 / -217 400 / 400 Weight (kg) 67 lb Lab Results 07/01/24 08:33 07/01/24 08:33 Assessment/Plan Problem List (1) care and examination of lactating mother: Impression: Assessment and Plan day 1. 34 yo P2 s/p on 06/30/2024 following medical elective IOL for preEclampsia - Routine - Anticipate discharge tomorrow (2) Pre-eclampsia, delivered: Impression: Preeclampsia WITHOUT severe features. Begin daily 100mg labetalol Reviewed severe features with patient and nursing Wearing preE risk blue bracelet. For severe range BP: IV antihypertensives and consult sonar technician physician
[2024-07-01 08:55] LABS: BASOPHILS # (AUTO) 0.1 10^3/uL (0.0-0.1); BASOPHILS % (AUTO) 0.4 %; EOSINOPHILS # (AUTO) 0.2 10^3/uL (0.0-0.7); EOSINOPHILS % (AUTO) 1.3 %; HCT - HEMATOCRIT 34.8 % (37.0-47.0); HGB - HEMOGLOBIN 11.4 g/dL (12.0-16.0); LYMPHOCYTES # (AUTO) 3.1 10^3/uL (1.5-3.5); LYMPHOCYTES % (AUTO) 17.8 %; MEAN CORPUSCULAR HEMOGLOBIN 29.2 pg (27.0-31.0); MEAN CORPUSCULAR HGB CONC 32.8 g/dL (32.0-36.0); MEAN CORPUSCULAR VOLUME 89.2 fL (81.0-99.0); MEAN PLATELET VOLUME 10.3 fL (7.9-10.8); MONOCYTES # (AUTO) 1.2 10^3/uL (0.0-1.0); MONOCYTES % (AUTO) 6.7 %; NEUTROPHILS # (AUTO) 12.7 10^3/uL (1.5-6.6); NEUTROPHILS % (AUTO) 72.9 %; PLT - PLATELET COUNT 249 10^3/uL (130-450); WHITE BLOOD COUNT 17.4 x10^3/uL (4.8-10.8)
[2024-07-01 09:10] LABS: ALBUMIN 2.9 g/dL (3.2-5.5); ALBUMIN/GLOBULIN RATIO 1.2 (1.0-2.2); BILIRUBIN,TOTAL 0.2 mg/dL (0.2-1.0); CALCIUM 8.9 mg/dL (8.5-10.3); CREATININE 0.6 mg/dL (0.6-1.3); TOTAL PROTEIN 5.3 g/dL (6.4-8.9)
[2024-07-01] MEDS: LABETALOL 100 MG TABLET PO SCH (11:28)
--- NOTE | 2024-07-01 12:31 | PROCEDURE REPORT ---
HPI Diagnosis/Indication for NST: Pre- Hypertension Current : Vital Signs Pulse Rate 118 H 06/29/24 21:50 Respiratory Rate 16 06/29/24 21:50 Blood Pressure 115/68 06/29/24 21:50 Temperature 36.6 C 07/01/24 11:35 Pulse Rate 83 07/01/24 11:35 Respiratory Rate 12 07/01/24 11:35 Blood Pressure 139/96 H 07/01/24 11:35 O2 Saturation 100 07/01/24 08:15 NST Procedure NST Procedure: NST reactive. FHR baseline 140s, moderate variability, + accels, no decels No contractions appreciated via tocometry
[2024-07-01 20:09] VITALS: O2SAT 99
[2024-07-01] MEDS: SIMETHICONE CHEW 80 MG TABLET PO PRN (20:48)
--- NOTE | 2024-07-02 09:40 | Discharge Summary ---
Discharge Summary HPI History of Present Illness: Date of Admission: 06/29/2024 Date of Discharge: 07/02/2024 Diagnosis on admission: 1. 34yo @ 37.1wks gestation 2. Preeclampsia without severe features 3. Unstable lie s/p successful external cephalic version 06/29/2024 4. Medical induction of labor with pre-induction cervical ripening 5. GBS negative 6. FHR Category I Diagnosis on Discharge 1. 34yo pp day #2, S?P 06/30/2025 @ 0944. 2. Intact perineum 3. Preeclampsia without severe fetatures, delivered 4. Desires sterility, schedule for [address] BTL with Dr[address] Larson Physical exam: Normocephalic, atraumatic Heart: Minimal trace edema to bilateral lower extremities Lungs: No increased work of breathing uterine involution, FF below umbilicus scant rubra bleeding Minimal perineal discomfort. Mood is good. HOSPITAL COURSE Hospital Course: Brief History: She is a patient of [facility] who presented on 06/29/2024 for a scheduled ECV and medical induction of labor at 37+1 weeks for preeclampsia without severe features. Hx of gestational hypertension and on LDASA since 12 weeks gestation. Following a successful ECV, her cervix was 3/50/-3, a cervical ripening balloon was placed and spontaneously expelled. Effective epidural anesthesia. She spontaneously delivered a viable male "Henry" apgars 8 & 9 at 1 and 5 minutes respectively. EBL 300ml. intact perineum. weight: 2865g She has been doing well in her course. She is ambulating and tolerating a regular diet. She is urinating without difficulty and her lochia is normal. Her pain is well controlled without narcotic management. She will be discharged to home today on day 2 with a prescription for 100mg PO labetalol BID which she tolerated well in the hospital. She has been encouraged to use IBU, tylenol and stool softeners PRN. She intends to follow up with [facility] in 1 week for in person appointment with myself, 07/07/2024 @1pm. She is well versed on conserning preeclampsia symptoms and understads to reach out with any concerns. 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 VZV: immune Rubella: immune RH: O+ ALLERGIES Allergies Allergy/AdvReac Type Severity Reaction Status Date / Time No Known Drug Allergies Allergy Verified 06/24/24 15:09 MEDICATIONS Ambulatory Orders Medication Instructions Recorded Confirmed vits no.126-ferrous fum 1 tab PO DAILY supplement 05/11/24 06/29/24 28 mg iron-folic acid 800 mcg tablet (Classic ) labetalol 100 mg tablet 100 mg PO BID #30 tabs 07/02/24 LABS 07/01/24 08:33 07/01/24 08:33 FOLLOW UP Follow Up: [facility] TIME SPENT Time Spent in Discharge (Minutes): 25 Discharge Plan Discharge Patient Disposition: [facility], Self Care Prescriptions: Continued labetalol 100 mg tablet 100 mg PO BID Qty: 30 0RF Rx Instructions: Hold if blood pressure is less than 130/80 Classic 28 mg iron- 800 mcg tablet 1 tab PO DAILY Discontinued aspirin 81 mg tablet,delayed release (DR/EC) 81 mg PO QDAY Diet: Regular Print Language: Armenian Patient Instructions: Breastfeed Holds, Depression Follow-up Care: Laine Rodriguez ARNP [Provider Admit Priv/Credential] - 1 Week (07/07/2024 @ 1pm with Laine Rodriguez CNM)
--- NOTE | 2024-07-02 12:02 | Labor Flowsheet ---
Labor Flowsheet Datetime Report Generated by CPN: 07/02/2024 12:01 Datetime: 07/02/2024 09:17 VITAL SIGNS NBP Sys/Gisell/Mean (mmHg): 138 : 91 : 102 Pulse: 86 Datetime: 06/30/2024 12:00 Stage of : Datetime: 06/30/2024 09:39 SpO2 (%): 97 LaborFlag: Labor Datetime: 06/30/2024 09:30 UTERINE ACTIVITY Monitor Mode: External Frequency (min): 2-5 Quality: Moderate Duration (sec): 60-90 Pattern: Normal: <= 5 Contractions in 10 Minutes Resting Tone (Palpate): Relaxed Pitocin Checklist: At Least 1 Acceleration of 15 bpm x 15 Seconds in 30 Minutes or Adequate Variabi lity; No More than 1 Late Deceleration Occurred in Past 30 Minutes; No More than 2 Variable Decelerat ions > 60 Seconds in Duration and decreasing >60 bpm in 30 minutes; No More than 5 Uterine Contractio ns in 10 Minutes for any 20 Minute Interval; Uterus Palpates Soft between Contractions ASSESSMENT A Monitor Mode: Telemetry FHR Baseline Rate : 145 Variability: Moderate 6-25 bpm Accelerations: 15X15 Decelerations: Variable Category: Category II Datetime: 06/30/2024 09:08 VAGINAL EXAM Dilatation (cm): 9.5 STAGE 2 Stage 2 Comments: start pushing Datetime: 06/30/2024 09:00 Headache: Denies Datetime: 06/30/2024 08:53 Medication Comments: benadryl 25mg IV Datetime: 06/30/2024 08:47 Temperature (C): 37.6 Datetime: 06/30/2024 08:46 Patient Care Comments: flying cowgirl right Datetime: 06/30/2024 08:25 Exam by: Fariba CNM Vaginal Exam Comments: complete/tiny ant lip Datetime: 06/30/2024 08:24 I/O Interventions: Mane Discontinued Datetime: 06/30/2024 07:49 Comments: flying cowgirl left Datetime: 06/30/2024 07:30 Monitor Interventions for UA: [place] Adjusted MATERNAL ASSESSMENT Level of Consciousness: Alert DTR's/Clonus: DTRs 2+; No Clonus Datetime: 06/30/2024 07:21 Provider Notified (Name): Penny Fariba CNM Notification Reason: Status Update; Labor Status; Pain Datetime: 06/30/2024 07:07 Effacement (%): 90 Station: -1 Datetime: 06/30/2024 07:00 PATIENT CARE Oxygen Method: Room Air Datetime: 06/30/2024 06:47 Patient Position/Activity: Right Lateral Datetime: 06/30/2024 06:34 Actions for Decelerations: Side to Side Datetime: 06/30/2024 06:19 Membranes Ruptured Date/Time: 06/29/2024 16:37 Datetime: 06/30/2024 06:16 Vaginal Bleeding: Normal Show Datetime: 06/30/2024 06:13 Respirations: 20 Datetime: 06/30/2024 05:47 COMMUNICATION Communication: Call/Page Placed to Provider Communication Comments: pt reports pain with contractions in addition to pressure. per ACCOUNTING FILE CLERK, encour age pt to hit epidural SPEECH PATHOLOGIST button until pain decreases or she reaches a max of 30ml/hr, if epidural P CA locks out at max before pain decreases RN to call ACCOUNTING FILE CLERK back, TORBV Datetime: 06/30/2024 05:39 Monitor Interventions for FHR: Ultrasound Adjusted Datetime: 06/30/2024 05:07 MEDICATIONS Pitocin (milliunits): Increased to @ 12 Datetime: 06/30/2024 04:45 Contraction Comments: ctx tracing inverted Datetime: 06/30/2024 01:00 Nausea/Vomiting: Denies RUQ Epigastric Pain: Denies Datetime: 06/29/2024 22:35 Magnesium/Antihypertensives: Ephedrine IV (mg) @ 5 Datetime: 06/29/2024 22:22 PAIN Pain Scale: 0 Pain Presence: None/Denies Pain Coping: Talking Through Contractions Datetime: 06/29/2024 21:38 Epidural Procedure: Loading Dose Epidural Procedure Other: Pump Started Datetime: 06/29/2024 21:08 PROCEDURE TIME OUT Procedure Verify: Correct Patient Identity; Correct Side and Site are Marked; Accurate Procedure Co nsent Form; Agreement on Procedure to be Done; Correct Patient Position; Relevant Images and Results are Properly Labeled and Displayed; Addressed Need to Administer Antibiotics or Fluids for Irrigation ; Safety Precautions Based on Patient History or Medication Use ANESTHESIA Anesthesia Plans: Epidural Epidural Positioning: Sitting Anesthesia Comments: Rishi Aguirre ACCOUNTING FILE CLERK at bedside Datetime: 06/29/2024 20:26 Pain Type: Contraction; Pressure Pain Location: Abdomen; Coccyx Pain Relief Measures: Comfort Measures Pain Assessment Comments: pt continues to use nitrous gas with contractions Comfort Measures: Breathing/Relaxation Datetime: 06/29/2024 19:14 Pain Goal: 6 Breath Sounds, Left: Clear and Equal Breath Sounds, Right: Clear and Equal Datetime: 06/29/2024 16:37 Membrane Status: Ruptured Membranes Rupture Method: Artificial Amniotic Fluid Color: Clear Amniotic Fluid Amount: Small Amniotic Fluid Odor: Normal Datetime: 06/29/2024 16:31 Cervix, Consistency: Soft Datetime: 06/29/2024 16:30 Cervical Ripening Agents Other: Balloon Datetime: 06/29/2024 16:28 Provider Reviewed Strip: Yes Datetime: 06/29/2024 16:01 Temperature Route: Oral Datetime: 06/29/2024 12:05 Cervical Ripening Agents: Cytotec @ Datetime: 06/29/2024 11:52 Procedures: Bedside Ultrasound Done Datetime: 06/29/2024 07:53 Tocolytics: Terbutaline 0.25mg Subcutaneous Datetime: 06/29/2024 06:51 Strip Reviewed by: DR Neo Datetime: 06/29/2024 06:45 FHR Baseline Changes: No Baseline Change
[2024-07-03] MEDS ORDERED: PRENATAL VITAMIN TABLET PO SCH (09:00)
== END 2024-07-02 11:45 | disposition home or self-care (01) | DRG 807 ==
LOC: WFO 05:45 → FBP 05:47
PROVIDERS: ADMIT Nurse Practitioner Obstetrics & Gynecology; ATTEND Nurse Practitioner Obstetrics & Gynecology
DX: Z37.0 Single live birth; O14.04 Mild to moderate pre-eclampsia, complicating childbirth; Z3A.37 37 weeks gestation of pregnancy; O32.1XX0 Maternal care for breech presentation, not applicable or unspecified; O69.81X0 Labor and delivery complicated by cord around neck, without compression, not applicable or unspecified